=== PATIENT | female | born 1990 | race Caucasian/White ===

== ENCOUNTER 2023-07-01 01:11 | Day surgery (SDC) | payer BC, SELFPAY ==
[2023-05-15 10:54] VITALS: BMI 26.9
--- NOTE | 2023-06-27 10:45 | SUR.PREOP ---
Patient called regarding upcoming procedure. Reviewed preop instructions, appointment times, and procedure prep.
[2023-07-01 11:47] VITALS: BP 119/69; PULSE 95; RESP 20; TEMP 36.4; O2SAT 100; BMI 26.2
[2023-07-01] MEDS: LACTATED RINGERS 1,000 ML 150 ML IV CONT (11:51)
--- NOTE | 2023-07-01 12:55 | P.PNAN_ITS ---
Anes - Initial Pre Proc Eval Procedure: Operation Date: 07/01/23 12:30 Proposed Procedures p Colonoscopy - Fam Zarate MD Date/Time: 07/01/23 12:55 Surgeon: Fam Zarate MD Pre Op Diagnosis: abdominal pain,IBS-C Patient Data Age: 32 Gender: F Height: 1.6 m Weight: 67 kg Last Vital Signs Temp 97.5 F L 07/01/23 11:47 Pulse 95 07/01/23 11:47 Resp 20 07/01/23 11:47 BP 119/69 07/01/23 11:47 Pulse Ox 100 07/01/23 11:47 O2 Del Method Room Air 07/01/23 11:47 Allergies Allergy/AdvReac Type Severity Reaction Status Date / Time sulfamethoxazole AdvReac Intermediate weakness, Verified 07/01/23 11:44 visions issues, dehydration trimethoprim AdvReac Intermediate weakness, Verified 07/01/23 11:44 visions issues, dehydration MONOCYCLINE AdvReac Intermediate Other Uncoded 07/01/23 11:44 Home Medications Medication Instructions Recorded Confirmed Type zolpidem 12.5 mg tablet,extended 12.5 mg PO DAILY 08/03/21 05/15/23 History release,multiphase magnesium oxide 400 mg PO DAILY 04/16/23 05/15/23 History linaclotide 72 mcg capsule 72 mcg PO DAILY 1 month #30 caps 04/18/23 05/15/23 Rx (Linzess) diazepam 5 mg tablet 5 mg PO DAILY 05/15/23 07/01/23 History ondansetron HCl 4 mg tablet 4 mg PO Q6H PRN Nausea And 05/15/23 Rx Vomiting #4 tabs Patient hx anesthesia problems: none Family hx anesthesia problems: none Results Review: All pre-operative results and documents have been reviewed as part of the pre-operative evaluation. [facility] Past Medical History Medical History (Updated 04/16/23 @ 13:32 by Zeferino Dumont) Atypical migraine Constipation Elevated liver enzymes Irritable bowel syndrome with constipation Family History Family History Mother Depression Social History Social History Smoking status: Never smoker Second hand tobacco smoke exposure: No Alcohol intake: current Drinks per week: 1 Alcohol use details: ONE EVERY OTHER WEEK Substance use: never Substance use type: does not use Living arrangements: with family Occupation/Education: occupation Gender identity (if verbalized by the patient): Female Spiritual care concerns: No Anes - Eval Final PreProcedure Day of Procedure 07/01/23 12:55 Patient weight: normal Heart: regular rate and rhythm Lungs: clear to auscultation Airway: Mallampati scale class II Neurological: alert and oriented Last oral intake: >/= 8 hours ASA classification: II Emergent: no Anesthetic plan: proceed Anesthesia type and monitoring: general GIVS and standard monitoring Results Review: All pre-operative results and documents have been reviewed as part of the pre- operative evaluation. Informed Consent: The patient's anesthetic plan and its attendant risks and benefits were discussed with the patient/family/POA. Questions were solicited and answers provided to the satisfaction of the patient/family/POA.
--- NOTE | 2023-07-01 12:55 | PM.HPGS ---
History of Present Illness History of Present Illness Consent: Risks, benefits, and alternatives have been discussed and questions answered. Patient agrees to proceed with procedure. Chief complaint: abdominal pain,IBS-C Narrative: Precious Yañez is a 32 year old female with intermittent abdominal pain and ibs-c, on linzess, never had colonoscopy Review of Systems Review of Systems: All systems reviewed & are unremarkable except as noted in HPI and below PMFSH Past Medical History Medical History (Updated 04/16/23 @ 13:32 by Zeferino Dumont) Atypical migraine Constipation Elevated liver enzymes Irritable bowel syndrome with constipation Family History Family History Mother Depression Social History Social History Smoking status: Never smoker Second hand tobacco smoke exposure: No Alcohol intake: current Drinks per week: 1 Alcohol use details: ONE EVERY OTHER WEEK Substance use: never Substance use type: does not use Living arrangements: with family Occupation/Education: occupation Gender identity (if verbalized by the patient): Female Spiritual care concerns: No Meds Home Medications and Allergies Home Medications Medication Instructions Recorded Confirmed Type zolpidem 12.5 mg tablet,extended 12.5 mg PO DAILY 08/03/21 05/15/23 History release,multiphase magnesium oxide 400 mg PO DAILY 04/16/23 05/15/23 History linaclotide 72 mcg capsule 72 mcg PO DAILY 1 month #30 caps 04/18/23 05/15/23 Rx (Linzess) diazepam 5 mg tablet 5 mg PO DAILY 05/15/23 07/01/23 History ondansetron HCl 4 mg tablet 4 mg PO Q6H PRN Nausea And 05/15/23 Rx Vomiting #4 tabs Allergies Allergy/AdvReac Type Severity Reaction Status Date / Time sulfamethoxazole AdvReac Intermediate weakness, Verified 07/01/23 11:44 visions issues, dehydration trimethoprim AdvReac Intermediate weakness, Verified 07/01/23 11:44 visions issues, dehydration MONOCYCLINE AdvReac Intermediate Other Uncoded 07/01/23 11:44 Vital Signs Vital Signs - 24 hr 07/01/23 11:47 Temperature 97.5 F L Pulse Rate 95 Respiratory Rate 20 Blood Pressure 119/69 Pulse Oximetry 100 Oxygen Delivery Room Air Exam Const: General: comfortable and no acute distress HENMT: Face/Nose/Sinus: Normal nares present Eyes: General: appearance normal, both eyes and all related structures Neck: Neck: no JVD Resp: Auscultation: clear to auscultation bilaterally Cardio: Rate: regular rate Rhythm: regular rhythm GI: Inspection: non-distended GI Palp: Yes Soft to palpation Skin: General skin exam: normal color Neuro: General: gait normal Speech: normal speech Extrem: General: normal to inspection Psych: Mental Status: mental status grossly normal Assessment and Plan Assessment and plan (1) Irritable bowel syndrome with constipation: Code(s): K58.1 - Irritable bowel syndrome with constipation Status: Acute Assessment and Plan: colonoscopy
[2023-07-01 13:09] VITALS: BP 91/58; PULSE 75; RESP 17; O2SAT 97
[2023-07-01 13:19] VITALS: BP 103/60; PULSE 76; RESP 20; O2SAT 100
[2023-07-01 13:29] VITALS: PULSE 76; RESP 18; O2SAT 100
== END 2023-07-01 13:35 | disposition home or self-care (01) ==
PROVIDERS: PCP Family Medicine; Visit Provider Internal Medicine Gastroenterology
PROC: 0DJD8ZZ Inspection of Lower Intestinal Tract, Via Natural or Artificial Opening Endoscopic (ICD-10-PCS; CPT 45378; principal; 2023-07-01 12:30)
DX: K64.8 Other hemorrhoids (principal); K58.1 Irritable bowel syndrome with constipation; F10.90 Alcohol use, unspecified, uncomplicated; Z79.899 Other long term (current) drug therapy
CPT/HCPCS: 45378; J2704; J7120